=== PATIENT | female | born 1965 | race Caucasian/White ===

== ENCOUNTER 2017-03-09 20:31 | Emergency (ER) | payer SELFPAY ==
[~2017-03-09] VITALS: Ht 160 cm; Wt 50.0 kg
[~2017-03-09 20:31] MED LIST: ASPIRIN81 MG PO; BABY ASPIRIN81 MG OR; BACTRIM DS1 TAB PO; BL ADULT ASA81 MG OR; CIPRO XR500 MG PO; FERROUS SULF325 M3 PO; FLEXERIL OR; Folic Acid PO; LOPRESSOR12.5 MG OR; LOPRESSOR12.5 MG PO; LORTAB 10-325 M1 TAB PO; NITROGLYCER0.4 MG SL; NITROSTAT0.4 MG PO; NITROSTAT0.4 MG SL; NO MEDS; PERCOCET 5/325M1 TAB OR; ULTRAM50 M1 OR; ULTRAM50 M1 PO; ULTRAM50 MG OR; [UNRECOGNIZED DRUG - REMARK]; [UNRECOGNIZED DRUG - REMARK]
[2017-03-09 21:09] LABS: HEMATOCRIT 36.5 % (37.0-47.0); IMMATURE GRANULOCYTES 0.3 % (0.0-1.0); MEAN CELL VOLUME 85.7 fL CALC (80.0-100.0); MEAN CORPUSCULAR HGB 28.2 pG CALC (26.0-32.0); MEAN CORPUSCULAR HGB CONC 32.9 g/L CALC (32.0-36.0); NEUT# 2.96 thou/uL (2.00-7.15); RED BLOOD COUNT 4.26 mill/uL (4.20-5.60); RED CELL DISTRI WIDTH 15.7 % (11.5-15.5)
[2017-03-09 21:12] LABS: BARBITURATES NEGATIVE (NEGATIVE); COCAINE NEGATIVE (NEGATIVE); METHADONE NEGATIVE (NEGATIVE); TETRAHYDROCANNABIONOL NEGATIVE (NEGATIVE); TRICYLIC ANTIDEPRESSANTS NEGATIVE (NEGATIVE)
[2017-03-09 21:13] LABS: OXCYCODONE POSITIVE (NEGATIVE)
[2017-03-09 21:27] LABS: ACT PARTIAL THROMBO TIME 26.7 SECONDS (20.0-32.5); PROTHROMBIN TIME 10.8 SECONDS (9.0-12.5)
[2017-03-09 21:55] VITALS: BP 138/83
[2017-03-10] MEDS ORDERED: BACTRIM DS1 TAB PO (18:25)
[2017-03-10] MEDS ORDERED: CLINDAMYCIN300 M1 PO (18:53)
== END 2017-03-09 22:12 | disposition home or self-care (01) | DRG 151 ==
LOC: ED 20:31
DX: R04.0 Epistaxis (principal); Z79.82 Long term (current) use of aspirin; Z72.89 Other problems related to lifestyle

== ENCOUNTER 2017-03-10 17:29 | Emergency (ER) | payer SELFPAY ==
[~2017-03-10] VITALS: Ht 160 cm; Wt 65.0 kg
[2017-03-10 18:04] LABS: HEMATOCRIT 35.2 % (37.0-47.0); HEMOGLOBIN 11.7 g/dl (12.0-16.0); IMMATURE GRANULOCYTES 0.5 % (0.0-1.0); MEAN CELL VOLUME 86.1 fL CALC (80.0-100.0); MEAN CORPUSCULAR HGB 28.6 pG CALC (26.0-32.0); MEAN CORPUSCULAR HGB CONC 33.2 g/L CALC (32.0-36.0); NEUT# 3.77 thou/uL (2.00-7.15); RED BLOOD COUNT 4.09 mill/uL (4.20-5.60); RED CELL DISTRI WIDTH 15.6 % (11.5-15.5)
[2017-03-10 18:07] LABS: PROTHROMBIN TIME 10.1 SECONDS (9.0-12.5)
[2017-03-10 18:16] LABS: ALBUMIN 4.1 g/dL (3.2-5.0); ALKALINE PHOSPHATASE 131 u/l (38-126); ANION GAP 18 (6-22 (CALC)); BILIRUBIN, TOTAL 0.3 mg/dL (0.0-1.4); BUN 10 mg/dL (7-17); BUN/CREATININE RATIO 26 (12-20 (CALC)); CALCIUM 9.2 mg/dL (8.4-10.2); CARBON DIOXIDE 22 mmol/l (22-30); CHLORIDE 92 mmol/l (95-108); CREATININE 0.4 mg/dL (0.5-1.0); GFR > 60 ML/MIN (>=60 (CALC)); GFR FOR AFR.AMER. > 60 ML/MIN (>=60 (CALC)); GLUCOSE 96 mg/dL (65-105); SGOT/AST 59 u/l (14-36); SGPT/ALT 56 u/l (9-52); SODIUM 128 mmol/l (137-146); TOTAL PROTEIN 7.5 g/dL (6.3-8.2)
[2017-03-10] MEDS ORDERED: BACTRIM DS1 TAB PO (18:25)
[2017-03-10 18:50] VITALS: BP 139/60
[2017-03-10] MEDS ORDERED: CLINDAMYCIN300 M1 PO (18:53)
== END 2017-03-10 18:58 | disposition home or self-care (01) | DRG 983 ==
LOC: ED 17:29
PROVIDERS: Emergency Medicine
PROC: 0W3Q7ZZ Control Bleeding in Respiratory Tract, Via Natural or Artificial Opening (ICD-10-PCS; principal; 2017-03-10)
DX: R04.0 Epistaxis (principal); I10 Essential (primary) hypertension; M19.90 Unspecified osteoarthritis, unspecified site; F41.9 Anxiety disorder, unspecified; F17.210 Nicotine dependence, cigarettes, uncomplicated

== ENCOUNTER 2017-03-10 20:37 | Emergency (ER) | payer SELFPAY ==
[~2017-03-10] VITALS: Ht 160 cm; Wt 47.3 kg
[~2017-03-10 20:37] MED LIST changes: +CLINDAMYCIN300 M1 PO
[2017-03-10 22:12] VITALS: BP 153/67
== END 2017-03-10 22:12 | disposition left against medical advice (07) | DRG 151 ==
LOC: ED 20:37
DX: R04.0 Epistaxis (principal); I10 Essential (primary) hypertension; M19.90 Unspecified osteoarthritis, unspecified site; F41.9 Anxiety disorder, unspecified; F17.210 Nicotine dependence, cigarettes, uncomplicated; Z91.19 Patient's noncompliance with other medical treatment and regimen

== ENCOUNTER 2019-11-04 | Observation (INO) | payer SELFPAY ==
[2019-11-04 18:02] LABS: HEMATOCRIT 33.1 % (37.0-47.0); HEMOGLOBIN 10.8 g/dl (12.0-16.0); IMMATURE GRANULOCYTES 0.5 % (0.0-5.0); MEAN CORPUSCULAR HGB CONC 32.6 g/dL CAL (32.0-36.0); NEUT# 4.02 thou/uL (2.00-7.15); RED BLOOD COUNT 3.6 mill/uL (4.20-5.60); RED CELL DISTRI WIDTH 13.4 % (11.5-15.5)
--- NOTE | 2019-11-04 18:03 | NUR ---
RECTAL EXAM COMPLETED BY MD WITH POSITIVE RESULTS, IV ACCESS OBTAINED AND LAB WORK DRAWN, PT TOLERATED WELL.
[2019-11-04] MEDS ORDERED: IRON325 M1 PO (18:06)
--- NOTE | 2019-11-04 18:10 | NUR ---
ASSISTED PT TO BATHROOM AWARE OF NEED FOR URINE SPECIMEN, INSTRUCTION AND SUPPLIES PROVIDED FOR PATIENT
[2019-11-04 18:15] LABS: MEAN CELL VOLUME 91.9 fL CALC (80.0-100.0)
--- NOTE | 2019-11-04 18:17 | NUR ---
PT AMBULATED BACK TO ROOM ,URINE SPECIMEN COLLECTED
[2019-11-04 18:19] LABS: PROTHROMBIN TIME 10.4 SECONDS (9.0-12.5)
[2019-11-04 18:21] LABS: ALBUMIN 3.2 g/dL (3.2-5.0); ALKALINE PHOSPHATASE 213 u/l (38-126); ANION GAP 12 (6-22 (CALC)); BILIRUBIN, TOTAL 0.3 mg/dL (0.0-1.4); BUN 7 mg/dL (7-17); BUN/CREATININE RATIO 22 (12-20 (CALC)); CARBON DIOXIDE 22 mmol/l (22-30); CHLORIDE 96 mmol/l (95-108); CREATININE 0.3 mg/dL (0.5-1.0); GFR > 60 ML/MIN (>=60 (CALC)); GFR FOR AFR.AMER. > 60 ML/MIN (>=60 (CALC)); LIPASE 193 u/l (23-300); POTASSIUM 4.6 mmol/l (3.5-5.1); SGOT/AST 54 u/l (14-36); SODIUM 126 mmol/l (137-146); TOTAL PROTEIN 6.7 g/dL (6.3-8.2)
[2019-11-04 18:27] LABS: URINE BILIRUBIN - DIPSTICK NEGATIVE (NEGATIVE); URINE BLOOD DIPSTICK LARGE (NEGATIVE); URINE COLOR YELLOW; URINE GLUCOSE - DIPSTICK NEGATIVE (NEGATIVE); URINE KETONE NEGATIVE (NEGATIVE); URINE LEUK ESTERASE NEGATIVE (NEGATIVE); URINE NITRITE - DIPSTICK NEGATIVE (Negative); URINE PROTEIN - DIPSTICK NEGATIVE (NEG-TRACE); URINE SPECIFIC GRAVITY <=1.005; URINE UROBILINOGEN - DIPSTICK 0.2 E.U./dL (0.2)
[2019-11-04 18:50] LABS: URINE WBC 0-2 WBC/hpf (0-5)
--- NOTE | 2019-11-04 19:21 | NUR ---
PT DENIES COMPLAINTS. PT OOB TO BATHROOM WITHOUT DIFFICULTY
--- NOTE | 2019-11-04 19:50 | NUR ---
PLAN OF CARE UPDATED WITH PT. PT DENIES ANY CONTINUED BLEEDING AT THIS TIME. PT DENIES COMPLAINTS
--- NOTE | 2019-11-04 20:50 | NUR ---
REPORT CHIKIS BLOOM ON MED-SURG. ROOM BEING CLEANED AT THIS TIME.
[2019-11-04 22:00] VITALS: BP 167/83
--- NOTE | 2019-11-04 22:04 | NUR ---
PT. ARRIVED TO THE FLOOR @2130 VIA W/C ACCOMPANIED BY ER STAFF. ADMISSION ASSESSMENT COMPLETED. REVIEWED POC, CALL LIGHT, AND ROOM; VERBALIZES UNDERSTANDING. AWAITING FRENCH BINDING FOLDER TO START NULYTELY, PT. EDUCATED ON THIS. PT. IS AWARE TO BE NPO AFTER MIDNIGHT FOR PLANNED PROCEDURE, PT. HAS YET TO SPEAK WITH SURGEON. ALLERGY BAND APPLIED AND CONFIRMED WITH PT. BSC AT BEDSIDE. IV SITE PATENT AND ORDERED IVF STARTED. PT. DENIES NEEDS FOR PAIN MEDICATION AT THIS TIME. WILL CONTINUE TO MONITOR. CALL LIGHT IS IN REACH.
--- NOTE | 2019-11-04 22:42 | NUR ---
PT. STARTING NULYTELY AND MEDICATED WITH ORDERED PRN ZOFRAN TO ASSIST WITH NAUSEA R/T DRINKING NULYTELY. PT. AWARE OF NEEDING TO DRINK PRIOR TO MIDNIGHT.
--- NOTE | 2019-11-04 23:00 | NUR ---
NOTIFIED DR. LR OF ELEVATED B/P AT 167/83 WITH HR 91; NO NEW ORDERS.
[2019-11-05] VITALS (9 sets, daily range): BP systolic 109–135; BP diastolic 40–75
--- NOTE | 2019-11-05 00:50 | NUR ---
PT. COMPLETED ALL NULYTELY AND HAD MULTIPLE BM'S BROWN WITH A SMALL AMOUNT OF BLOOD TINGE NOTED. BSC EMPTIED AND RE-SET AT BEDSIDE. PT. PROVIDED WITH MOUTHSWABS SHE IS NPO NOW. DENIES FURTHER NEEDS. CALL LIGHT IS IN REACH.
--- NOTE | 2019-11-05 02:15 | NUR ---
PT. [place] [facility]. VOIDED AND HAD A BM. NO DISTRESS NOTED. REMAINS NPO .
--- NOTE | 2019-11-05 04:30 | NUR ---
PT. SITTING UP IN BED WITH NO DISTRESS NOTED; DENIES NEEDS/PAIN. CALL LIGHT IS IN REACH.
--- NOTE | 2019-11-05 07:05 | NUR ---
REPORT RECEIVED FROM WOLFRN;PT RESTING IN SEMI FOWLERS POSITION;INTRODUCED SELF TO PT AND POC DISCUSSED;RESPIRATIONS EVEN AND UNLABORED ON RA;PT DENIES ANY CURRENT PAIN OR NEEDS;IV FLUIDS INFUSING WITH EASE PER ORDER;NPO DIET REINFORCED;PT DENIES ANY ADDITIONAL NEEDS AND IS ENCOURAGED TO CALL FOR ASSISTANCE IF NEEDED;CALL LIGHT IN REACH;WILL CONTINUE TO MONITOR
--- NOTE | 2019-11-05 08:13 | NUR ---
RICH FROM ANESTHESIA AT BEDSIDE
--- NOTE | 2019-11-05 08:20 | NUR ---
PT RESTING IN SEMI FOWLERS POSITION,A&O X3;VS OBTAINED AND ASSESSMENT COMPLETED;PT DENIES ANY CURRENT PAIN OR DISCOMFORTS,PAIN SCALE AND REPORTING EDUCATED;RESPIRATIONS EVEN AND UNLABORED ON RA,CLEAR LUNG SOUNDS;ABDOMEN SOFT ON PALPATION AND ACTIVE IN ALL 4 QUADRANTS;WEAK PEDAL PULSES;SKIN INTACT;#22G TO RAC INFUSING NS @ 100ML/HR,SITE APPEARS HEALTHY;NPO DIET REINFORCED;PT DENIES ANY ADDITIONAL NEEDS AT THIS TIME;PT VERBALIZES UNDERSTANDING OF PLAN FOR COLONOSCOPY IN OR;PT ENCOURAGED TO CALL FOR ASSISTANCE IF NEEDED;FALL PRECAUTIONS IN PLACE WITH BED IN THE LOWEST POSITION AND CALL LIGHT IN REACH;WILL CONTINUE TO MONITOR
--- NOTE | 2019-11-05 08:25 | NUR ---
INFORMED CONSENT OBTAINED FOR COLONOSCOPY AT THIS TIME.ALL RISKS AND BENEFITS DISCUSSED AND PT VERBALIZES UNDERSTANDING.ALL QUESTIONS ANSWERED.
--- NOTE | 2019-11-05 09:38 | NUR ---
PT TRANSPORTED TO OR IN STABLE CONDITION VIA STRETCHER ACCOMPANIED BY RANDI PARKER
--- NOTE | 2019-11-05 12:14 | NUR ---
PT ARRIVED BACK TO MED/SURG ROOM 261 IN STABLE CONDITION VIA STRETCHER ACCOMPANIED BY RANDI SÁNCHEZ;PT TRANSFERRED TO HOSPITAL BED INDEPENDENTLY;RESPIRATIONS EVEN AND UNLABORED ON RA;PT REPORTS RECTAL PAIN THAT IS DECREASING SINCE PAIN MEDICATION ADMINISTRATION IN OR;PT POSITIONED ON HER SIDE FOR COMFORT;IV FLUIDS INFUSING WITH EASE TO RAC PER ORDER;FRESH WATER PROVIDED PER ORDER;PT DENIES ANY ADDITIONAL NEEDS AND IS ENCOURAGED TO CALL FOR ASSISTANCE IF NEEDED;CALL LIGHT IN REACH;WILL CONTINUE TO MONITOR
[2019-11-05] MEDS ORDERED: PERCOCET 5/325M1 TAB PO (13:21)
--- NOTE | 2019-11-05 14:55 | NUR ---
ALL DISCHARGE INSTRUCTIONS PROVIDED AT THIS TIME;PT INSTRUCTED TO F/U WITH IN ONE WEEK AND TAKE RX FOR PERCOCET 5/325MG NEEDED;PT DENIES ANY ADDITIONAL QUESTIONS OR NEEDS;IV SITE REMOVED WITH CATHETER INTACT;PT DENIES ANY ADDITIONAL NEEDS AT THIS TIME;WHEELCHAIR TO BE PROVIDED FOR D/C HOME;FAMILY TO TRANSPORT PT HOME.
--- NOTE | 2019-11-05 15:30 | NUR ---
Discharge instructions given. Patient verbalizes understanding of same. Discharged in stable condition via Wheelchair to Home with *Other. All belongings sent with pt. PT TRANSPORTED TO [facility] IN STABLE CONDITION VIA WHEELCHAIR ACCOMPANIED BY ANNABELLA FLORES.PT UNABLE TO FIND A RIDE HOME.[facility] CALLED PER REQUEST FOR TRANSPORTATION.
== END 2019-11-05 15:29 | disposition home or self-care (01) | DRG 375 ==
PROVIDERS: Family Medicine; ADMIT Emergency Medicine
PROC: 0DBP8ZX Excision of Rectum, Via Natural or Artificial Opening Endoscopic, Diagnostic (ICD-10-PCS; principal; 2019-11-05)
PROC: 0DBP3ZX Excision of Rectum, Percutaneous Approach, Diagnostic (ICD-10-PCS; 2019-11-05)
DX: C20 Malignant neoplasm of rectum (principal); K62.5 Hemorrhage of anus and rectum; K57.30 Diverticulosis of large intestine without perforation or abscess without bleeding; I10 Essential (primary) hypertension; F17.210 Nicotine dependence, cigarettes, uncomplicated; Z85.44 Personal history of malignant neoplasm of other female genital organs
CPT/HCPCS: G0378; Q9967

== ENCOUNTER 2020-02-04 17:51 | Observation (INO) | payer MEDICAID ==
[~2020-02-04] VITALS: Ht 160 cm; Wt 46.4 kg
[~2020-02-04 17:51] MED LIST changes: +IRON325 M1 PO; +PERCOCET 5/325M1 TAB PO
--- NOTE | 2020-02-04 17:51 | NUR ---
PT TO ROOM VIA EMS
[2020-02-04] MEDS ORDERED: CVS IBUPROFEN200 M3 PO (18:03)
--- NOTE | 2020-02-04 18:18 | NUR ---
PT STATES HAVING RECTAL BLEEDING SINCE 1630 TODAY AND HAS PAIN OF 10/10. PT HAS SATURATED FOUR PADS SINCE THEN. PT HAS DIZZINESS, HEADACHE BUT DENIES SOB OR CHEST PAIN. INCREASED WEAKNESS HAS BEEN FELT STATED BY PT. WAS DX WITH RECTAL CA THREE WKS AGO
[2020-02-04 18:35] LABS: HEMATOCRIT 25.9 % (37.0-47.0); IMMATURE GRANULOCYTES 1.1 % (0.0-5.0); MEAN CELL VOLUME 77.8 fL CALC (80.0-100.0); MEAN CORPUSCULAR HGB CONC 30.9 g/dL CAL (32.0-36.0); NEUT# 5.11 thou/uL (2.00-7.15); RED BLOOD COUNT 3.33 mill/uL (4.20-5.60); RED CELL DISTRI WIDTH 19.8 % (11.5-15.5)
[2020-02-04 18:41] LABS: ALKALINE PHOSPHATASE 154 u/l (38-126); BUN 9 mg/dL (7-17); BUN/CREATININE RATIO 21 (12-20 (CALC)); CHLORIDE 95 mmol/l (95-108); CREATININE 0.4 mg/dL (0.5-1.0); ETHYL ALCOHOL 142 mg/dl (0-30); GFR > 60 ML/MIN (>=60 (CALC)); GFR FOR AFR.AMER. > 60 ML/MIN (>=60 (CALC)); LIPASE 63 u/l (23-300); POTASSIUM 3.9 mmol/l (3.5-5.1); SGOT/AST 23 u/l (14-36); SODIUM 121 mmol/l (137-146); TOTAL PROTEIN 5.7 g/dL (6.3-8.2)
[2020-02-04 18:46] LABS: INTERNATIONAL NORMALIZED RATIO 1.1 RATIO (0.7-1.3); PROTHROMBIN TIME 10.9 SECONDS (9.0-12.5)
--- NOTE | 2020-02-04 18:50 | NUR ---
GAVE REPORT TO RAPHAEL BRYAN
--- NOTE | 2020-02-04 19:00 | NUR ---
PATIETN RESWTING AWAITING RADIOLOGY TESTING. PATIENT STATES PAIN 4 ON 0-10 SCALE MD NOTIFIED
[2020-02-04 19:02] LABS: ALBUMIN 2.5 g/dL (3.2-5.0); AMYLASE < 30 u/l (30-110); ANION GAP 16 (6-22 (CALC)); CARBON DIOXIDE 14 mmol/l (22-30)
--- NOTE | 2020-02-04 20:09 | NUR ---
SEVERAL UNSUCCESSFUL ATTEMPTS MADE AT IV ACCESS. AWARE.
--- NOTE | 2020-02-04 20:30 | NUR ---
PATIENT GIVEN PO CONTRAST AND INSTRUCTIONS ON DRINKING AND TIMES GIVEN. PATIENT VERBALLY ACKNOWLEDGED UNDERSTANDING OF INSTRUCTIONS
--- NOTE | 2020-02-04 21:27 | NUR ---
PATIENT RESTING DRINKING CONTRAST PER MD ORDER PATIENT STATES PAIN 4 ON 0-10 SCALE
--- NOTE | 2020-02-04 22:33 | NUR ---
PATIENT RESTING AWAITNG RADIOLOGY PATIENT DENIES ANY PAIN AT THIS TIME
[2020-02-05] VITALS (14 sets, daily range): BP systolic 97–150; BP diastolic 45–80
--- NOTE | 2020-02-05 00:26 | NUR ---
REPORT CALLED TO MERRY IN ICU AND PATIENT TRANSPORTED
--- NOTE | 2020-02-05 00:35 | NUR ---
PT TO ICU 4 VIA WHEELCHAIR ACCOMPANIED BY ER NURSE. PT ASSISTED TO BATHROOM TO VOID. URINE SPECIMEN OBTAINED. PT THEN ASSISTED TO BED AND PLACED ON CARDIAC MONITORS. PT IS ALERT AND ORIENTED X3. ADMISSION ASSESSMENT COMPLETED AT THIS TIME. IV TO LEFT HAND PT STATES THAT IT BURGOS IV REMOVED. #22 STARTED TO RIGHT HAND X 1 ATTEMPT BY JORGE SHARP RN. IVF INFUSING WITH PAIN MEDICATION AND NAUSEA MEDICATION GIVEN. PT REQUESTED SOMETHING TO DRINK EXPLAINED THAT SHE WAS NPO. ORIENTED TO ROOM AND UNIT AND CALL LIGHT SYSTEM. [facility]. WILL CONTINUE TO MONITOR
[2020-02-05 01:33] LABS: URINE BILIRUBIN - DIPSTICK NEGATIVE (NEGATIVE); URINE BLOOD DIPSTICK SMALL (NEGATIVE); URINE COLOR YELLOW; URINE GLUCOSE - DIPSTICK NEGATIVE (NEGATIVE); URINE KETONE NEGATIVE (NEGATIVE); URINE LEUK ESTERASE NEGATIVE (NEGATIVE); URINE NITRITE - DIPSTICK NEGATIVE (Negative); URINE PH 5.5 (4.5-8.0); URINE PROTEIN - DIPSTICK NEGATIVE (NEG-TRACE); URINE SPECIFIC GRAVITY <=1.005; URINE UROBILINOGEN - DIPSTICK 0.2 E.U./dL (0.2)
[2020-02-05 01:36] LABS: URINE RBC 0-2 RBC/hpf (0-5)
--- NOTE | 2020-02-05 02:03 | NUR ---
PT RESTING IN BEFD WITH EYES CLOSED. RESP ARE EVEN AND UNLABORED. NO DSITRESS NTOED. CALL LIGHT IN REACH. WILL CONTINUE TO MONITOR.
--- NOTE | 2020-02-05 04:04 | NUR ---
PT RESTING IN BED WITH EYES CLOSED. RESP ARE EVEN AND UNLABORED. NO DISTRESS NOTED. CALL LIGHT IN REACH. WILL CONTIN UE TO MONITOR.
--- NOTE | 2020-02-05 04:33 | NUR ---
LAB AT BEDSIDE AT THIS TIME
[2020-02-05 05:04] LABS: HEMATOCRIT 22.7 % (37.0-47.0); IMMATURE GRANULOCYTES 0.5 % (0.0-5.0); MEAN CORPUSCULAR HGB 23.7 pG CALC (26.0-32.0); MEAN CORPUSCULAR HGB CONC 30.4 g/dL CAL (32.0-36.0); NEUT# 3.52 thou/uL (2.00-7.15); RED BLOOD COUNT 2.91 mill/uL (4.20-5.60); RED CELL DISTRI WIDTH 19.9 % (11.5-15.5)
[2020-02-05 05:37] LABS: ALBUMIN 2.1 g/dL (3.2-5.0); ALKALINE PHOSPHATASE 126 u/l (38-126); BUN 9 mg/dL (7-17); BUN/CREATININE RATIO 32 (12-20 (CALC)); CHLORIDE 104 mmol/l (95-108); CREATININE 0.3 mg/dL (0.5-1.0); GFR > 60 ML/MIN (>=60 (CALC)); GFR FOR AFR.AMER. > 60 ML/MIN (>=60 (CALC)); SGOT/AST 24 u/l (14-36); TOTAL PROTEIN 4.8 g/dL (6.3-8.2)
[2020-02-05 05:38] LABS: ANION GAP 6 (6-22 (CALC)); CARBON DIOXIDE 23 mmol/l (22-30); POTASSIUM 4.8 mmol/l (3.5-5.1); SODIUM 128 mmol/l (137-146)
[2020-02-05 06:10] LABS: HEMOGLOBIN 7.1 g/dl (12.0-16.0)
--- NOTE | 2020-02-05 07:20 | NUR ---
pt awake in bed; no apparent distress noted; assisted to bsc; no rectal bleeding noted; assessment completed at this time; pt alert and oriented; complaints of back pain; will medicate; no n/v noted; resp even and unlabored; lungs clear; skin color wnl; ra; hr reg; strong pulses; no edema noted; sr on monitor; abd soft with bs present; no bm noted per public relations writer; pt voiding without pain or burning; bsc; #22 patent to rh with ivf infusing without complication; no redness or edema noted at site; blood transfusion explained/ consent obtained; plan of care/ am meds explained; call light within reach; will continue to monitor
--- NOTE | 2020-02-05 07:57 | NUR ---
awake in bed; no apparent distress noted; pt with complaints of back pain; will medicate; offers no additional complaints; iv intact and patent; sr on monitor; call light within reach; will continue to monitor
--- NOTE | 2020-02-05 08:25 | NUR ---
Dr Moss present at bedside to assess pt and discuss plan of care; #20 started to lh x2 attempts; ns infusing for blood transfusion; will continue to monitor
--- NOTE | 2020-02-05 08:46 | NUR ---
[facility] transfer center called; com writer spoke with Lela; information provided; facesheet faxed; will continue to monitor
--- NOTE | 2020-02-05 09:12 | NUR ---
check writer salesperson and Dr Moss has explained to pt need for transfer to [facility]; pt agree with plan of care; blood product explained; pt educated on possible s/sx of allergic reaction; blood transfusion initiated; iv patent; will continue to monitor
--- NOTE | 2020-02-05 10:00 | NUR ---
pt resting in bed with eyes closed; no apparent distress noted; resp even and unlabored; iv intact and patent; prbc's infusing without complication; no redness or edema noted at site; no s/sx of reaction noted; sr on monitor; call light within reach; will continue to monitor
--- NOTE | 2020-02-05 12:05 | NUR ---
awake in bed conversing on cell phone; no apparent distress noted; pt offers no complaints; prbcs completed; pt tolerated well; no s/sx of reaction noted; iv flushed and saline locked; ra; sr on monitor; lunch provided; call light within reach; will continue to monitor
--- NOTE | 2020-02-05 13:50 | NUR ---
report called to RANDI Nava
--- NOTE | 2020-02-05 13:58 | NUR ---
[facility] called per radio news writer; spoke with Litzy; awaiting discharge from oncology floor; [facility] informed pt will be moved to med surg, Brandy as the nurse; [facility] to call med surg unit when available
--- NOTE | 2020-02-05 14:01 | NUR ---
pt transferred to med surg tele room 277 in stable condition; belongings sent with pt
--- NOTE | 2020-02-05 14:03 | NUR ---
PT ARRIVED TO FLOOR VIA WC ACCOMPANIED BY PRINTING ASSISTANT. DENIES PAIN AT THIS TIME. PT ORIENTED TO ROOM AND EQUIPMENT. PLAN OF CARE REVIEWED. AWAITING BED ASSIGNMENT FOR TRANSFER TO [facility] DISCUSSED. PT STATES UNDERSTANDING. VSS. FALL PRECAUTIONS REINFORCED. GENERALIZED WEAKNESS NOTED. NS @ 125 ML/HR INFUSING THROUGH #22 RH W/O DIFFICULTY.
--- NOTE | 2020-02-05 16:11 | NUR ---
PT. REPORTS RELIEF OF RECTAL PAIN FOLLOWING MORPHINE IV ADMINISTRATION. REPORTING OF FURTHER CONCERNS ENCOURAGED.
--- NOTE | 2020-02-05 16:33 | NUR ---
CALLED [facility] AT SPOKE TO CLAYTON STATED TO HER PT IS GOING TO [facility] RM [id number] COMING FROM MED SURG. CLAYTON STATED THEY WILL BE HERE IN 30 MINUTES.
--- NOTE | 2020-02-05 17:34 | NUR ---
PT. LEFT FLOOR VIA STRETCHER ACCOMPANIED BY [facility] TRANSPORT STAFF X 2. PT STABLE AT THIS TIME.
--- NOTE | 2020-02-05 17:40 | NUR ---
REPORT CALLED TO RANDI GALLAGHER AT [facility].
== END 2020-02-05 17:34 | disposition short-term general hospital (02) | DRG 375 ==
LOC: ED 17:51 → ED-I 23:19 → ED 23:37 → ED-I 23:38 → ICU 02-05 00:06 → MS2 02-05 14:03
PROVIDERS: Emergency Medicine; ADMIT Internal Medicine; ATTEND Internal Medicine
PROC: 30233N1 Transfusion of Nonautologous Red Blood Cells into Peripheral Vein, Percutaneous Approach (ICD-10-PCS; principal; 2020-02-05)
DX: C20 Malignant neoplasm of rectum (principal); K62.5 Hemorrhage of anus and rectum; D62 Acute posthemorrhagic anemia; I10 Essential (primary) hypertension; F10.10 Alcohol abuse, uncomplicated; I25.2 Old myocardial infarction; F17.210 Nicotine dependence, cigarettes, uncomplicated; Y90.6 Blood alcohol level of 120-199 mg/100 ml; Z91.19 Patient's noncompliance with other medical treatment and regimen; Z20.828 Contact with and (suspected) exposure to other viral communicable diseases
CPT/HCPCS: G0378; P9016

== ENCOUNTER 2020-03-25 13:32 | Inpatient (IN) | payer MEDICAID ==
[2020-03-25] VITALS (9 sets, daily range): BP systolic 93–167; BP diastolic 53–97
[~2020-03-25] VITALS: Ht 157.5 cm; Wt 47.3 kg
[~2020-03-25 13:32] MED LIST changes: +CVS IBUPROFEN200 M3 PO
[2020-03-25 14:11] LABS: GFR > 60 ML/MIN (>=60 (CALC)); GFR FOR AFR.AMER. > 60 ML/MIN (>=60 (CALC))
[2020-03-25 14:23] LABS: HEMATOCRIT 23.6 % (37.0-47.0); HEMOGLOBIN 7.5 g/dl (12.0-16.0); IMMATURE GRANULOCYTES 2.6 % (0.0-5.0); MEAN CELL VOLUME 86.8 fL CALC (80.0-100.0); MEAN CORPUSCULAR HGB 27.6 pG CALC (26.0-32.0); MEAN CORPUSCULAR HGB CONC 31.8 g/dL CAL (32.0-36.0); NEUT# 0.29 thou/uL (2.00-7.15); RED BLOOD COUNT 2.72 mill/uL (4.20-5.60); RED CELL DISTRI WIDTH 23.3 % (11.5-15.5)
[2020-03-25 14:36] LABS: BUN 9 mg/dL (7-17); BUN/CREATININE RATIO 30 (12-20 (CALC)); CARBON DIOXIDE 23 mmol/l (22-30); CHLORIDE 96 mmol/l (95-108); CREATININE 0.3 mg/dL (0.5-1.0); GFR > 60 ML/MIN (>=60 (CALC)); GFR FOR AFR.AMER. > 60 ML/MIN (>=60 (CALC)); LIPASE 12 u/l (23-300); SGOT/AST 32 u/l (14-36); SODIUM 123 mmol/l (137-146); TOTAL PROTEIN 4.5 g/dL (6.3-8.2)
[2020-03-25 14:50] LABS: ALKALINE PHOSPHATASE 236 u/l (38-126); ANION GAP 8 (6-22 (CALC)); BILIRUBIN, TOTAL 0.6 mg/dL (0.0-1.4); C-REACTIVE PROTEIN 17.7 mg/dL (0-0.9); POTASSIUM 3.5 mmol/l (3.5-5.1)
[2020-03-25] MEDS ORDERED: DIPHEN/ATROP2.5 MG PO (16:16)
[2020-03-25 16:30] LABS: MAGNESIUM 1.7 mg/dL (1.6-2.3)
[2020-03-25] MEDS ORDERED: OXYCODONE5 M1 PO (16:38)
[2020-03-26] VITALS (12 sets, daily range): BP systolic 82–143; BP diastolic 52–76
[2020-03-26 06:03] LABS: ALBUMIN 1.7 g/dL (3.2-5.0); ALKALINE PHOSPHATASE 197 u/l (38-126); ANION GAP 8 (6-22 (CALC)); BUN 7 mg/dL (7-17); BUN/CREATININE RATIO 32 (12-20 (CALC)); CARBON DIOXIDE 20 mmol/l (22-30); CHLORIDE 104 mmol/l (95-108); CREATININE 0.2 mg/dL (0.5-1.0); GFR > 60 ML/MIN (>=60 (CALC)); GFR FOR AFR.AMER. > 60 ML/MIN (>=60 (CALC)); POTASSIUM 3.2 mmol/l (3.5-5.1); SGOT/AST 36 u/l (14-36); SODIUM 129 mmol/l (137-146); TOTAL PROTEIN 3.9 g/dL (6.3-8.2)
[2020-03-26 06:08] LABS: BILIRUBIN, TOTAL 0.2 mg/dL (0.0-1.4)
[2020-03-26 06:25] LABS: HEMATOCRIT 22.6 % (37.0-47.0); HEMOGLOBIN 7.1 g/dl (12.0-16.0); MEAN CELL VOLUME 87.6 fL CALC (80.0-100.0); MEAN CORPUSCULAR HGB 27.5 pG CALC (26.0-32.0); MEAN CORPUSCULAR HGB CONC 31.4 g/dL CAL (32.0-36.0); NEUT# 0.09 thou/uL (2.00-7.15); RED BLOOD COUNT 2.58 mill/uL (4.20-5.60); RED CELL DISTRI WIDTH 23.4 % (11.5-15.5)
[2020-03-27] VITALS (19 sets, daily range): BP systolic 86–150; BP diastolic 52–81
[2020-03-27 06:04] LABS: ALBUMIN 1.6 g/dL (3.2-5.0); ALKALINE PHOSPHATASE 177 u/l (38-126); ANION GAP 5 (6-22 (CALC)); BILIRUBIN, TOTAL 0.2 mg/dL (0.0-1.4); BUN 7 mg/dL (7-17); BUN/CREATININE RATIO 27 (12-20 (CALC)); CARBON DIOXIDE 20 mmol/l (22-30); CHLORIDE 109 mmol/l (95-108); CREATININE 0.3 mg/dL (0.5-1.0); GFR > 60 ML/MIN (>=60 (CALC)); GFR FOR AFR.AMER. > 60 ML/MIN (>=60 (CALC)); SGOT/AST 27 u/l (14-36); SODIUM 131 mmol/l (137-146); TOTAL PROTEIN 3.7 g/dL (6.3-8.2)
[2020-03-27 06:17] LABS: HEMATOCRIT 20.2 % (37.0-47.0); MEAN CELL VOLUME 87.1 fL CALC (80.0-100.0); MEAN CORPUSCULAR HGB 27.6 pG CALC (26.0-32.0); MEAN CORPUSCULAR HGB CONC 31.7 g/dL CAL (32.0-36.0); NEUT# 0.04 thou/uL (2.00-7.15); RED BLOOD COUNT 2.32 mill/uL (4.20-5.60); RED CELL DISTRI WIDTH 24.1 % (11.5-15.5)
[2020-03-27 06:18] LABS: HEMOGLOBIN 6.4 g/dl (12.0-16.0)
[2020-03-28] VITALS (16 sets, daily range): BP systolic 111–144; BP diastolic 69–99
[2020-03-28 05:40] LABS: ALBUMIN 1.7 g/dL (3.2-5.0); ALKALINE PHOSPHATASE 177 u/l (38-126); ANION GAP 6 (6-22 (CALC)); BUN 6 mg/dL (7-17); BUN/CREATININE RATIO 23 (12-20 (CALC)); CARBON DIOXIDE 19 mmol/l (22-30); CHLORIDE 113 mmol/l (95-108); CREATININE 0.2 mg/dL (0.5-1.0); GFR > 60 ML/MIN (>=60 (CALC)); GFR FOR AFR.AMER. > 60 ML/MIN (>=60 (CALC)); MAGNESIUM 1.7 mg/dL (1.6-2.3); POTASSIUM 3.4 mmol/l (3.5-5.1); SGOT/AST 23 u/l (14-36); SODIUM 134 mmol/l (137-146)
[2020-03-28 05:42] LABS: BILIRUBIN, TOTAL 0.4 mg/dL (0.0-1.4)
[2020-03-28 05:59] LABS: HEMATOCRIT 27.4 % (37.0-47.0); HEMOGLOBIN 8.8 g/dl (12.0-16.0); MEAN CELL VOLUME 85.6 fL CALC (80.0-100.0); MEAN CORPUSCULAR HGB 27.5 pG CALC (26.0-32.0); MEAN CORPUSCULAR HGB CONC 32.1 g/dL CAL (32.0-36.0); NEUT# 0.01 thou/uL (2.00-7.15); RED BLOOD COUNT 3.2 mill/uL (4.20-5.60); RED CELL DISTRI WIDTH 22.6 % (11.5-15.5)
[2020-03-29] VITALS (19 sets, daily range): BP systolic 94–140; BP diastolic 63–99
[2020-03-29 07:43] LABS: BUN 6 mg/dL (7-17); BUN/CREATININE RATIO 23 (12-20 (CALC)); CARBON DIOXIDE 18 mmol/l (22-30); CHLORIDE 115 mmol/l (95-108); CREATININE 0.3 mg/dL (0.5-1.0); GFR > 60 ML/MIN (>=60 (CALC)); GFR FOR AFR.AMER. > 60 ML/MIN (>=60 (CALC)); SODIUM 137 mmol/l (137-146)
[2020-03-29 08:00] LABS: ANION GAP 7 (6-22 (CALC)); POTASSIUM 2.5 mmol/l (3.5-5.1)
[2020-03-29 08:10] LABS: HEMATOCRIT 26.3 % (37.0-47.0); HEMOGLOBIN 8.4 g/dl (12.0-16.0); MEAN CELL VOLUME 85.9 fL CALC (80.0-100.0); MEAN CORPUSCULAR HGB 27.5 pG CALC (26.0-32.0); MEAN CORPUSCULAR HGB CONC 31.9 g/dL CAL (32.0-36.0); NEUT# 0.09 thou/uL (2.00-7.15); RED BLOOD COUNT 3.06 mill/uL (4.20-5.60); RED CELL DISTRI WIDTH 22.8 % (11.5-15.5)
== END 2020-03-29 23:10 | disposition short-term general hospital (02) | DRG 871 ==
LOC: ED 13:32 → ED-I 15:30 → ED 15:45 → ICU 15:46 → MS2 15:46 → ICU 16:59
PROVIDERS: Family Medicine; Internal Medicine; Nurse Practitioner; ADMIT Internal Medicine; ATTEND Internal Medicine
PROC: 009U3ZX Drainage of Spinal Canal, Percutaneous Approach, Diagnostic (ICD-10-PCS; principal; 2020-03-25)
PROC: 30233N1 Transfusion of Nonautologous Red Blood Cells into Peripheral Vein, Percutaneous Approach (ICD-10-PCS; 2020-03-27)
DX: A41.9 Sepsis, unspecified organism (principal); J96.00 Acute respiratory failure, unspecified whether with hypoxia or hypercapnia; A04.5 Campylobacter enteritis; A04.0 Enteropathogenic Escherichia coli infection; C20 Malignant neoplasm of rectum; E87.1 Hypo-osmolality and hyponatremia; R64 Cachexia; Z68.1 Body mass index [BMI] 19.9 or less, adult; B37.0 Candidal stomatitis; D70.1 Agranulocytosis secondary to cancer chemotherapy; D64.81 Anemia due to antineoplastic chemotherapy; T45.1X5A Adverse effect of antineoplastic and immunosuppressive drugs, initial encounter; I95.9 Hypotension, unspecified; E87.6 Hypokalemia; G89.29 Other chronic pain; R50.81 Fever presenting with conditions classified elsewhere; F17.210 Nicotine dependence, cigarettes, uncomplicated; F10.10 Alcohol abuse, uncomplicated; Z85.44 Personal history of malignant neoplasm of other female genital organs; Z95.828 Presence of other vascular implants and grafts; Z88.1 Allergy status to other antibiotic agents; Z88.0 Allergy status to penicillin; Z20.828 Contact with and (suspected) exposure to other viral communicable diseases
CPT/HCPCS: J1442; J1650; J2060; J3370; P9016; S0073

== ENCOUNTER 2020-04-03 16:33 | Inpatient (IN) | payer OTHER ==
[~2020-04-03] VITALS: Ht 160 cm; Wt 45.2 kg
--- NOTE | 2020-04-03 16:16 | NUR ---
PT ARRIVED TO MED SURG ROOM 271 IN STABLE CONDITION VIA STRETCHER ACCOMPAINED BY MEDICAL TRANSPORTATION. PT IS A TRANSFER FROM [facility].INTRODUCED SELF TO PT AND DISCUSSED POC. PT IS A/O X3. ASSESSMENT AND VITALS COMPLETED AT THIS TIME. RESPIRATIONS ARE EVEN AND UNLABORED WITH NO SIGNS OF DISTRESS NOTED. LUNG SOUNDS ARE COURSE. HEART RHYTHM IS NORMAL. ORDERS FOR TELE. TELE APPLIED. BOWEL SOUNDS ARE ACTIVE IN ALL QUADRANTS. PT INFORMS WRITTER THAT SHE HAS BEEN HAVING DIARREHA FOR THE PAST COUPLE DAYS. PT WASHED UP AND CHANGED AT THIS TIME. HYGIENE APPEARS TO BE EVERY POOR. RADIAL AND PEDAL PULSES ARE STRONG WITH NORMAL CAPILLARY REFILL. PT PRESENTED WITH PORT IN RIGHT CHEST THAT WAS ACCESSED 04/01/20 AT [facility]. SITE FLUSHED WITH GOOD BLOOD RETURN. PT PRESENTS WITH STAGE 2 PRESSURE ULCER ON COCCYX, Q2 TURNING ENFORCED. PT ALSO HAS BREAKDOWN BETWEEN THIGH AND PUBIC REGION.PHOTOS DOCUMENTED AND PLACE IN CHART. PT COMPLAINS OF 6/10 BACK PAIN THAT SHE STATES "I ALWAYS HAVE." PT ORIENTED TO ROOM AND CALL LIGHT SYSTEM .ALL SAFETY PRECAUTIONS ARE IN PLACE WIHT CALL LGHT IN REACH. WILL CONTINUE TO MONITOR.
[2020-04-03 16:30] VITALS: BP 140/70
[~2020-04-03 16:33] MED LIST changes: +DIPHEN/ATROP2.5 MG PO; +OXYCODONE5 M1 PO
[2020-04-03 19:00] VITALS: BP 143/83
--- NOTE | 2020-04-03 19:02 | NUR ---
REPORT FROM JAVIER LAYNE. ASSUMED CARE AT THIS TIME.
--- NOTE | 2020-04-03 20:02 | NUR ---
PT NOTED RESTING IN BED WITH EYES CLOSED. PT WAKES EASILY. NO APPARENT DISTRESS NOTED. RESPIRATIONS EVEN AND UNLABORED. 02 @ 2L/M VIA NC. LUNGS SOUNDS COARSE. VOCATIONAL REHABILITATION ADMINISTRATOR IN PLACE. RIGHT UPPER CHEST PORT ACCESSED, DRESSING CDI. DISCUSSED POC AND SAFETY PRECAUTIONS. PT DENIES ANY CURRENT WANTS OR NEEDS. CALL LIGHT WITHIN REACH. WILL CONTINUE TO MONITOR.
--- NOTE | 2020-04-04 00:02 | NUR ---
PT RESTING IN BED WITH EYES CLOSED. PT LAYING ON LEFT SIDE. NO APPARENT DISTRESS NOTED. RESPIRATIONS EVEN AND UNLABORED. TEAROOM HOST/HOSTESS IN PLACE. CALL LIGHT WITHIN REACH. WILL CONTINUE TO MONITOR.
[2020-04-04 00:24] VITALS: BP 126/77
[2020-04-04 04:16] VITALS: BP 116/76
--- NOTE | 2020-04-04 04:30 | NUR ---
LABS OBTAINED FROM RIGHT CHEST PORT ACCESS. FLUSHED PER PROTOCOL. PT TOLERATED WELL. ASSISTED PT WITH REPOSITIONING IN BED AT THIS TIME. DENIES ANY OTHER WANTS OR NEEDS. CALL LIGHT WITHIN REACH. WILL CONTINUE TO MONITOR.
[2020-04-04 05:31] LABS: HEMATOCRIT 29.3 % (37.0-47.0); HEMOGLOBIN 9.5 g/dl (12.0-16.0); MEAN CELL VOLUME 85.4 fL CALC (80.0-100.0); MEAN CORPUSCULAR HGB 27.7 pG CALC (26.0-32.0); MEAN CORPUSCULAR HGB CONC 32.4 g/dL CAL (32.0-36.0); RED BLOOD COUNT 3.43 mill/uL (4.20-5.60); RED CELL DISTRI WIDTH 19.9 % (11.5-15.5)
[2020-04-04 05:41] LABS: ALBUMIN 1.7 g/dL (3.2-5.0); ALKALINE PHOSPHATASE 164 u/l (38-126); BILIRUBIN, TOTAL 0.3 mg/dL (0.0-1.4); BUN 4 mg/dL (7-17); BUN/CREATININE RATIO 13 (12-20 (CALC)); CREATININE 0.3 mg/dL (0.5-1.0); GFR > 60 ML/MIN (>=60 (CALC)); GFR FOR AFR.AMER. > 60 ML/MIN (>=60 (CALC)); POTASSIUM 3.3 mmol/l (3.5-5.1); SGOT/AST 34 u/l (14-36)
[2020-04-04 05:51] LABS: ANION GAP 2 (6-22 (CALC)); CARBON DIOXIDE 30 mmol/l (22-30); CHLORIDE 101 mmol/l (95-108); SODIUM 130 mmol/l (137-146)
[2020-04-04 08:22] VITALS: BP 101/64
--- NOTE | 2020-04-04 08:27 | NUR ---
ASSESSMENT DONE. PT IS A&O X3 BUT FORGETFUL AT TIMES. BED ALARM IN PLACE. PT IS WEAK. TELE IN PLACE. PT STATED PAIN IN BACK 02/06. MEDICATED PT WITH ROXICODONE. PT DENIES ANY OTHER NEEDS AT THIS TIME. SAFETY PRECAUTIONS REINFORCED AND CALL LIGHT IN REACH.
--- NOTE | 2020-04-04 11:29 | NUR ---
PT STATED PAIN IN BACK 04/09. MEDICATED PT WITH TYLENOL AND PO FLUIDS PROVIDED. PT DENIES ANY OTHER NEEDS AT THIS TIME. CALL LIGHT IN REACH.
[2020-04-04 11:51] VITALS: BP 124/72
--- NOTE | 2020-04-04 15:33 | NUR ---
ASSISTED PT TO THE BSC BUT PT SAT IN THE SIDE OF THE BED AND STATED DIZZY AND FELT WEAK TO GET UP. PT REQUESTED THE BEDPAN. ARACELIS CARE DONE. APPLIED AQUCEL FOAM IN BUTTOCKS. PT STATED PAIN PAIN IN BACK 05/09 MEDICATED PT WITH ROXICODONE. PT DENIES ANY OTHER NEEDS AT THIS TIME. CALL LIGHT IN REACH.
[2020-04-04 16:10] VITALS: BP 118/73
[2020-04-04 19:00] VITALS: BP 129/79
--- NOTE | 2020-04-04 20:00 | NUR ---
PATIENT ALERT, VERBAL WITH PERIODS OF FORGETFULNESS, ABLE TO MAKE NEEDS KNOWN. ABLE TO TOLERATE MEDS WELL WHOLE. CONTINENT OF BOWEL AND BLADDER-USES BEDSIDE COMMODE WITH ONE PERSON ASSIST. TREATMENT CONTINUES TO MULTIPLE WOUNDS ON BILATERAL BUTTOCKS. TELEMETRY IN PLACE WITH SINUS TACH @ 106. O2 @ 2L/MIN BNC--NO S/S OF RESP DISTRESS NOTED. DENIES PAIN AT THIS TIME. PORT IN PLACE TO RIGHT UPPER CHEST--DRSG C/D/I. BED ALARM IN PLACE RELATED TO POOR SAFETY AWARENESS. WILL CONT TO MONITOR FOR ANY FURTHER CHANGES.
[2020-04-05] VITALS: BP 103/62
--- NOTE | 2020-04-05 | NUR ---
PATIENT RESTING SOUNDLY IN BED WITH EYES CLOSED AT THIS TIME. NO APPARENT DISTRESS NOTED. DID HAVE A LOW GRADE TEMP OF 99.6 EARLIER--REMOVED BLANKETS AND LOWERED THE TEMP IN THE ROOM--WILL CONT TO MONITOR FOR ANY FURTHER CHANGES.
[2020-04-05 04:00] VITALS: BP 136/83
--- NOTE | 2020-04-05 04:00 | NUR ---
PATIENT HAD A EXTREMELY LARGE LOOSE BM THIS AM AT THIS TIME. DRSG CHANGED TO COCCYX WOUND. HAS BEEN RESTLESS THE LAST FEW HOURS--DENIES DISCOMOFORT--SIMPLY STATES SHE CANT SLEEP. PORT REMAINS INTACT TO RIGHT CHEST WALL--FLUSHES WELL--DRSG C/D/I--SITE UNREMARKABLE. TELEMETRY IN PLACE WITH SINUS TACH @ 109. WILL CONT TO MONITOR FOR ANY FURTHER CHANGES.
[2020-04-05 04:50] LABS: HEMATOCRIT 27.8 % (37.0-47.0); HEMOGLOBIN 8.9 g/dl (12.0-16.0); MEAN CELL VOLUME 86.3 fL CALC (80.0-100.0); MEAN CORPUSCULAR HGB 27.6 pG CALC (26.0-32.0); RED BLOOD COUNT 3.22 mill/uL (4.20-5.60); RED CELL DISTRI WIDTH 19.7 % (11.5-15.5)
[2020-04-05 05:03] LABS: ALBUMIN 1.7 g/dL (3.2-5.0); ALKALINE PHOSPHATASE 191 u/l (38-126); ANION GAP 4 (6-22 (CALC)); BUN 3 mg/dL (7-17); BUN/CREATININE RATIO 12 (12-20 (CALC)); CARBON DIOXIDE 25 mmol/l (22-30); CHLORIDE 106 mmol/l (95-108); CREATININE 0.3 mg/dL (0.5-1.0); GFR > 60 ML/MIN (>=60 (CALC)); GFR FOR AFR.AMER. > 60 ML/MIN (>=60 (CALC)); POTASSIUM 3.6 mmol/l (3.5-5.1); SGOT/AST 48 u/l (14-36); SODIUM 131 mmol/l (137-146); TOTAL PROTEIN 3.8 g/dL (6.3-8.2)
[2020-04-05 05:09] LABS: BILIRUBIN, TOTAL 0.1 mg/dL (0.0-1.4)
[2020-04-05 07:45] VITALS: BP 111/67
--- NOTE | 2020-04-05 09:24 | NUR ---
PT IS ALERT AND ORIENTED X 3, APPEARS WEAK. LUNGS DIMINISHED LEFT BASE, 2 LPM NC. COCCYX EXCORIATED, BARRIER CREAM IN USE FOR SKIN BREAKDOWN PREVENTION. PT USES BSC WITH STANDBY ASSIST.
[2020-04-05 11:15] LABS: C. DIFFICILE TOXIN A&B NEGATIVE (NEGATIVE)
[2020-04-05] MEDS ORDERED: FUROSEMIDE20 MG PO (11:36)
[2020-04-05] MEDS ORDERED: FLORASTOR250 M1 PO (11:36)
[2020-04-05] MEDS ORDERED: POT CHLORIDE10 ME5 PO (11:36)
--- NOTE | 2020-04-05 12:34 | NUR ---
PT AWARE OF POSSIBLE DISCHARGE TODAY AFTER HOME HEALTH IS SET UP. PT CONFIRMS THAT SHE LIVES WITH HER BOYFRIEND WHO IS HELPFUL TO ASSIST HER.
[2020-04-05 13:10] VITALS: BP 122/80
--- NOTE | 2020-04-05 16:20 | NUR ---
PT RESTS IN THE BED, NO ACUTE DISTRESS. WHEN PT GETS UP TO USE BSC HER HR ELEVATES TO 120-130 RANGE, PROMPTING PHONE CALLS FROM RN CASE MANAGEMENT.
[2020-04-05 16:34] VITALS: BP 144/86
[2020-04-05 19:00] VITALS: BP 126/75
--- NOTE | 2020-04-05 19:02 | NUR ---
REPORT FROM TRISTON BRYAN. PT NOTED RESTING IN BED WITH EYES CLOSED. PT WAKES EASILY. NO APPARENT DISTRESS NOTED. RESPIRATIONS EVEN AND UNLABORED. CALL CENTER TEAM LEADER IN PLACE. RIGHT UPPER CHEST PORT ACCESSED, DRESSING CDI. DISCUSSED POC AND SAFETY PRECAUTIONS. PT DENIES ANY CURRENT WANTS OR NEEDS. CALL LIGHT WITHIN REACH. WILL CONTINUE TO MONITOR.
--- NOTE | 2020-04-05 23:15 | NUR ---
PLACED PT ON BEDPAN PER REQUEST. PT VOIDED 450ML CLEAR YELLOW URINE AT THIS TIME. PERICARE PROVIDED AND ASSISTED WITH REPOSITIONING FOR COMFORT. PT TOLERATED WELL. PT DENIES ANY OTHER CURRENT WANTS OR NEEDS. CALL LIGHT WITHIN REACH. WILL CONTINUE TO MONITOR.
[2020-04-06 00:33] VITALS: BP 112/72
--- NOTE | 2020-04-06 03:25 | NUR ---
PT RESTING IN BED WITH EYES CLOSED. NO APPARENT DISTRESS NOTED. RESPIRATIONS EVEN AND UNLABORED. CALL LIGHT WITHIN REACH. WILL CONTINUE TO MONITOR.
[2020-04-06 04:19] VITALS: BP 119/71
--- NOTE | 2020-04-06 08:00 | NUR ---
BINA ROSAS IN TO VISIT WITH PT.
[2020-04-06 08:10] VITALS: BP 128/73
--- NOTE | 2020-04-06 08:10 | NUR ---
ASSESSMENT IS COMPLETED: IV SITE IS FREE FROM REDNESS OR EDEMA. HR IS REG,PULSES ARE STRONG, X4. ABD IS SOFT WITH ACTIVE BS. BREATH SOUNDS ARE CLEAR BILATERALLY. TELE MONITOR IN PLACE.
--- NOTE | 2020-04-06 09:10 | NUR ---
BINA ROSAS IN TO VISIT WITH PT. ABLE TO BE DISCHARGED. IV SITE DISCONTINUED BY PEYMAN BRYAN PT TOLERATED WELL.
--- NOTE | 2020-04-06 09:15 | NUR ---
DISCHARGE INSTRUCTIONS GIVEN AND VERBALIZED UNDERSTANDING., FAMILY WAITING FOR PT IN ER.
== END 2020-04-06 09:04 | disposition home health service (06) | DRG 809 ==
LOC: MS2 16:33
PROVIDERS: Nurse Practitioner Family; ADMIT Internal Medicine; ATTEND Internal Medicine
DX: D70.9 Neutropenia, unspecified (principal); R64 Cachexia; C20 Malignant neoplasm of rectum; J90 Pleural effusion, not elsewhere classified; R50.81 Fever presenting with conditions classified elsewhere; E87.6 Hypokalemia; C51.0 Malignant neoplasm of labium majus; R19.7 Diarrhea, unspecified; F10.10 Alcohol abuse, uncomplicated; F17.200 Nicotine dependence, unspecified, uncomplicated

== ENCOUNTER 2020-05-24 08:27 | Emergency (ER) | payer OTHER ==
[~2020-05-24] VITALS: Ht 160 cm; Wt 39.0 kg
[~2020-05-24 08:27] MED LIST changes: +FLORASTOR250 M1 PO; +FUROSEMIDE20 MG PO; +POT CHLORIDE10 ME5 PO
[2020-05-24 09:10] VITALS: BP 130/74
== END 2020-05-24 09:10 | disposition home or self-care (01) ==
LOC: ED 08:27
DX: Z45.2 Encounter for adjustment and management of vascular access device (principal); C19 Malignant neoplasm of rectosigmoid junction; Z92.21 Personal history of antineoplastic chemotherapy

== ENCOUNTER 2020-07-13 20:09 | Emergency (ER) | payer OTHER ==
[~2020-07-13] VITALS: Ht 152.4 cm; Wt 40.9 kg
[2020-07-13 21:13] LABS: URINE BILIRUBIN - DIPSTICK NEGATIVE (NEGATIVE); URINE BLOOD DIPSTICK NEGATIVE (NEGATIVE); URINE COLOR YELLOW; URINE GLUCOSE - DIPSTICK NEGATIVE (NEGATIVE); URINE KETONE NEGATIVE (NEGATIVE); URINE LEUK ESTERASE NEGATIVE (NEGATIVE); URINE NITRITE - DIPSTICK NEGATIVE (Negative); URINE PROTEIN - DIPSTICK NEGATIVE (NEG-TRACE); URINE SPECIFIC GRAVITY <=1.005; URINE UROBILINOGEN - DIPSTICK 0.2 E.U./dL (0.2)
[2020-07-13 22:04] LABS: IMMATURE GRANULOCYTES 0.6 % (0.0-5.0); MEAN CORPUSCULAR HGB 33.1 pG CALC (26.0-32.0); NEUT# 1.78 thou/uL (2.00-7.15); RED BLOOD COUNT 3.57 mill/uL (4.20-5.60); RED CELL DISTRI WIDTH 18.4 % (11.5-15.5)
[2020-07-13 22:07] LABS: HEMATOCRIT 34.7 % (37.0-47.0); HEMOGLOBIN 11.8 g/dl (12.0-16.0); MEAN CELL VOLUME 97.2 fL CALC (80.0-100.0)
[2020-07-13 22:22] LABS: ANION GAP 9 (6-22 (CALC)); BUN 2 mg/dL (7-17); BUN/CREATININE RATIO 8 (12-20 (CALC)); CARBON DIOXIDE 21 mmol/l (22-30); CHLORIDE 105 mmol/l (95-108); CREATININE 0.3 mg/dL (0.5-1.0); GFR > 60 ML/MIN (>=60 (CALC)); GFR FOR AFR.AMER. > 60 ML/MIN (>=60 (CALC)); POTASSIUM 4.1 mmol/l (3.5-5.1); SGOT/AST 48 u/l (14-36); SODIUM 131 mmol/l (137-146)
[2020-07-13 22:29] LABS: ALBUMIN 2.1 g/dL (3.2-5.0); ALKALINE PHOSPHATASE 515 u/l (38-126); BILIRUBIN, TOTAL 0.4 mg/dL (0.0-1.4); TOTAL PROTEIN 5.5 g/dL (6.3-8.2)
[2020-07-14 07:45] VITALS: BP 110/62
== END 2020-07-14 07:45 | disposition home or self-care (01) ==
LOC: ED 20:09
DX: S80.212A Abrasion, left knee, initial encounter (principal); S80.211A Abrasion, right knee, initial encounter; S80.02XA Contusion of left knee, initial encounter; S80.01XA Contusion of right knee, initial encounter; E86.0 Dehydration; D64.9 Anemia, unspecified; C19 Malignant neoplasm of rectosigmoid junction; F17.210 Nicotine dependence, cigarettes, uncomplicated; W18.30XA Fall on same level, unspecified, initial encounter; Y92.009 Unspecified place in unspecified non-institutional (private) residence as the place of occurrence of the external cause; Z92.3 Personal history of irradiation; Z92.21 Personal history of antineoplastic chemotherapy

== ENCOUNTER 2020-08-07 20:03 | Emergency (ER) | payer OTHER ==
[~2020-08-07] VITALS: Ht 157.5 cm; Wt 39.5 kg
[2020-08-07 20:47] LABS: IMMATURE GRANULOCYTES 1.9 % (0.0-5.0); MEAN CORPUSCULAR HGB 34.9 pG CALC (26.0-32.0); MEAN CORPUSCULAR HGB CONC 33.5 g/dL CAL (32.0-36.0); NEUT# 5.34 thou/uL (2.00-7.15); RED BLOOD COUNT 2.49 mill/uL (4.20-5.60); RED CELL DISTRI WIDTH 20.6 % (11.5-15.5)
[2020-08-07 20:48] LABS: HEMOGLOBIN 8.7 g/dl (12.0-16.0); MEAN CELL VOLUME 104.4 fL CALC (80.0-100.0)
[2020-08-07 20:58] LABS: ALKALINE PHOSPHATASE 335 u/l (38-126); BUN 3 mg/dL (7-17); BUN/CREATININE RATIO 12 (12-20 (CALC)); CHLORIDE 93 mmol/l (95-108); CREATININE 0.2 mg/dL (0.5-1.0); GFR > 60 ML/MIN (>=60 (CALC)); GFR FOR AFR.AMER. > 60 ML/MIN (>=60 (CALC)); POTASSIUM 3.4 mmol/l (3.5-5.1); SGOT/AST 45 u/l (14-36); TOTAL PROTEIN 5.2 g/dL (6.3-8.2)
[2020-08-07 21:18] LABS: ANION GAP 8 (6-22 (CALC)); CARBON DIOXIDE 26 mmol/l (22-30); SODIUM 124 mmol/l (137-146)
[2020-08-07 23:54] VITALS: BP 92/59
== END 2020-08-07 23:52 | disposition short-term general hospital (02) ==
LOC: ED 20:03
PROVIDERS: Emergency Medicine
DX: E87.1 Hypo-osmolality and hyponatremia (principal); R07.9 Chest pain, unspecified; R94.31 Abnormal electrocardiogram [ECG] [EKG]; D64.9 Anemia, unspecified; C19 Malignant neoplasm of rectosigmoid junction; F17.210 Nicotine dependence, cigarettes, uncomplicated; Z74.01 Bed confinement status; Z20.828 Contact with and (suspected) exposure to other viral communicable diseases